=== PATIENT | male | born 1940 | race Caucasian/White ===

== ENCOUNTER → 2017-05-02 | Outpatient (CLI) | payer MEDICARE ==
[~2017-05-02] MED LIST: ALBU90OI; ALLO300; CARV3.125; DIPYRIDAMOLE1 GM PO; DOCU100; Desyrel50 MG; GABA300 PO; LIDO700A20 TOP; LOVA40 PO; Norco 5-325 Ta1 EACH PO; Nortriptyline H25 MG PO; TAMS.4ER; TESTOSTERO200 MG/1 M; Triamterene W/1 EACH; Valium5 MG PO
== END | disposition home or self-care (01) ==
LOC: LAB SHORT 07:40 → LAB 07:40 → LAB FUT 04-18 16:10
PROVIDERS: Internal Medicine
DX: R79.0 Abnormal level of blood mineral (principal)
CPT/HCPCS: 81050; 84166; 86335

== ENCOUNTER → 2017-07-16 | Outpatient (CLI) | payer MEDICARE ==
[2017-07-18 15:11] LABS: Stool Occult Bld Immuno 1 Negative (NEGATIVE); Stool Occult Bld Immuno 2 Negative (NEGATIVE)
== END ==
LOC: LAB 12:30 → LAB SHORT 12:30 → LAB FUT 07-06 12:00
PROVIDERS: Internal Medicine Gastroenterology
DX: Z12.11 Encounter for screening for malignant neoplasm of colon (principal); K57.30 Diverticulosis of large intestine without perforation or abscess without bleeding; Z86.010 Personal history of colon polyps
CPT/HCPCS: G0328

== ENCOUNTER 2017-08-08 | Day surgery (SDC) | END 2017-08-08 11:07 | disposition home or self-care (01) ==

== ENCOUNTER → 2019-01-14 | Outpatient (CLI) | payer MEDICARE | LOC: LAB SHORT 18:02 → LAB 18:02 | DX: R30.0 Dysuria (principal) | CPT/HCPCS: 87086 ==

== ENCOUNTER 2019-11-20 12:11 | Day surgery (SDC) | payer MEDICARE ==
[~2019-11-20] VITALS: Ht 177.8 cm; Wt 103.3 kg
[~2019-11-20 12:11] MED LIST changes: +AGGRENOX 25 MG1 EACH PO; +ALLO300 PO; +CARV3.125 PO; +DYAZIDE 37.5-21 EACH PO; +LOSA50 PO; +NORT25 PO; +ROSU5 PO; +TAMS.4ER PO; +TRAZ50 PO
== END 2019-11-20 14:39 | disposition home or self-care (01) ==
LOC: ORSCSDS 12:11
PROVIDERS: Internal Medicine Gastroenterology
PROC: 0DBC8ZX Excision of Ileocecal Valve, Via Natural or Artificial Opening Endoscopic, Diagnostic (ICD-10-PCS; principal; 2019-11-20 13:45)
PROC: 0DBM8ZX Excision of Descending Colon, Via Natural or Artificial Opening Endoscopic, Diagnostic (ICD-10-PCS; principal; 2019-11-20 13:45)
DX: Z12.11 Encounter for screening for malignant neoplasm of colon (principal); Z86.010 Personal history of colon polyps; D12.0 Benign neoplasm of cecum; D12.4 Benign neoplasm of descending colon; K57.30 Diverticulosis of large intestine without perforation or abscess without bleeding; G47.33 Obstructive sleep apnea (adult) (pediatric); E66.9 Obesity, unspecified; Z68.34 Body mass index [BMI] 34.0-34.9, adult; K64.8 Other hemorrhoids
CPT/HCPCS: 88305; J2704; J7120

== ENCOUNTER 2020-03-09 09:55 | Day surgery (SDC) | payer SELFPAY ==
[~2020-03-09] VITALS: Ht 177.8 cm; Wt 105.2 kg
[2020-03-09] MEDS ORDERED: ALPHA LIPOIC A600 MG PO (10:42)
[2020-03-09] MEDS ORDERED: ALBU90OI INH (10:45)
[2020-03-09] MEDS ORDERED: Vitamin C100 M1 PO (10:45)
[2020-03-09] MEDS ORDERED: GLUCHON PO (10:46)
--- NOTE | 2020-03-09 11:19 | NUR ---
03/09/[address] NOTIFIED OF LOW BLOOD PRESSURE. NO ORDERS AT THIS TIME.
== END 2020-03-09 11:26 | disposition home or self-care (01) ==
LOC: ORSCSDS 09:55
PROVIDERS: Anesthesiology
PROC: 3E0R3BZ Introduction of Anesthetic Agent into Spinal Canal, Percutaneous Approach (ICD-10-PCS; principal; 2020-03-09 12:30)
PROC: 3E0R33Z Introduction of Anti-inflammatory into Spinal Canal, Percutaneous Approach (ICD-10-PCS; principal; 2020-03-09 12:30)
DX: M51.16 Intervertebral disc disorders with radiculopathy, lumbar region (principal); Z79.899 Other long term (current) drug therapy; I10 Essential (primary) hypertension; G47.33 Obstructive sleep apnea (adult) (pediatric); J44.9 Chronic obstructive pulmonary disease, unspecified; E78.00 Pure hypercholesterolemia, unspecified; K21.9 Gastro-esophageal reflux disease without esophagitis; N18.9 Chronic kidney disease, unspecified
CPT/HCPCS: J1040

== ENCOUNTER → 2020-06-11 | Outpatient (CLI) | payer MEDICARE ==
[~2020-06-11] MED LIST changes: +ALBU90OI INH; +ALPHA LIPOIC A600 MG PO; +GLUCHON PO; +Vitamin C100 M1 PO
[2020-06-15 13:10] LABS: M-SPIKE, % Not Observed % (Not Observed); PROTEIN,TOTAL,URINE 5.6 mg/dL (Not Estab.)
== END | disposition home or self-care (01) ==
LOC: LAB 13:44 → LAB SHORT 13:44 → LAB FUT 06-08 13:15
PROVIDERS: Internal Medicine
DX: R79.89 Other specified abnormal findings of blood chemistry (principal)
CPT/HCPCS: 81050; 84166; 86335